=== PATIENT | female | born 1960 | race Caucasian/White ===

== ENCOUNTER 2018-05-21 16:58 | Emergency (ER) | payer MEDICARE, OTHER ==
[2018-05-21 18:08] VITALS: TEMP 96.8
[2018-05-21] MEDS ORDERED: amLODIPine 5 MG TAB PO STA (19:20)
[2018-05-21 19:21] VITALS: PULSE 92
[2018-05-21] MEDS ORDERED: IBUPROFEN 600 MG TAB PO STA (19:22)
--- NOTE | 2018-05-21 19:23 | ED ---
Fall HPI - General Chief Complaint: Fall Stated Complaint: fall/facial abrasions Time Seen by Provider: 05/21/18 18:10 Source: patient Mode of arrival: wheelchair - History of Present Illness Initial Comments: This is a 57-year-old female with past history of hypertension, degenerative disc disease in the lumbar spine, and asthma who presents today for chief complaint of fall. Patient states that at 4:30 PM this afternoon she was walking from one bus to another she states that she was going for a ride down [address]. She states that she usually has a cane for balance with walking however she forgot it at home today, when her flip-flop caught a raised portion of the cement causing her to fall forward and she landed on her knees left greater than right and her nose and chin. Patient states that she merely noticed her nose was bleeding, as well as pain in the nose and the chin. Patient states that she had minimal pain in the knees bilaterally. Patient denies any chest pain, palpitations, shortness of breath, seizure activity, palpitations prior to the fall and states that it was mechanical and due to her for follow-up. Patient denies hitting her forehead or any other part of her head decides her nose and chin , she denies any headache, dizziness, visual changes, ataxia, nausea, vomiting, muscle weakness or loss sensation. Patient does admit to some low back pain, and abrasions to the nose and chin. Patient denies any pain in the teeth, lips, numbness and tingling of the lower extremities, loss sensation lower extremities, loss of of bowel or bladder control. Upon presentation BP elevated at 220/104. - Related Data Allergies Allergy/AdvReac Type Severity Reaction Status Date / Time erythromycin base Allergy Diarrhea Verified 05/21/18 19:40 Review of Systems ROS Statement: Those systems with pertinent positive or pertinent negative responses have been documented in the HPI. ROS Other: All systems not noted in ROS Statement are negative. Past Medical History Past Medical History: Asthma, Hypertension History of Any Multi-Drug Resistant Organisms: None Reported Past Surgical History: No Surgical Hx Reported Past Psychological History: No Psychological Hx Reported Smoking Status: Current every day smoker Past Alcohol Use History: None Reported Past Drug Use History: None Reported General Exam - General Exam Comments Initial Comments: General: The patient is awake and alert, in no distress, and does not appear acutely ill. Eye: Pupils 3mm are equal, round and reactive to light, extra-ocular movements are intact. No APD, or aniscoria. No nystagmus or gaze conjugation. There is normal conjunctiva bilaterally. No signs of icterus. Ears, nose, mouth and throat: There are moist mucous membranes and no oral lesions.Abrasion over the bridge of nose with ecchymosis. No evidence of anterior or posterior epistaxis, no septal hematoma b/l. Neck: The neck is supple, there is no tenderness or JVD. Cardiovascular: There is a regular rate and rhythm. No murmur, rub or gallop is appreciated. Respiratory: Lungs are clear to auscultation, respirations are non-labored, breath sounds are equal. No wheezes, stridor, rales, or rhonchi. Musculoskeletal: Full ROM and strength of UE and LE b/l equally including shoulders, elbow, wrists, hands, hips, knees, ankle, feet, toes. Full sensation of UE/LE equally b/l. Mild tenderness to palpation over the left knee- no obvious deformity with mild soft tissue swelling. Pt able to full WB and ambulate without difficulty. Full ROM and strength of C-spine without tenderness midline or paravertebral. Mild tenderness to palpation over the lumbar spine diffusely, however full ROM and strength. Neurological: A&O x 3. CN II-XII intact, immediate, intermediate and exterminator helper termite memory intact. Speech intact (la, pa, guh), Higher cortical functioning intact including serial calculations, and interpretation of proverb. Graphethesia normal, pt able to identify object with eye closed. 2pt discrimination intact and extinction. No finger agnosia. No hemineglect. No pronator drift. Rapid alternating movements are coordinated. Heel, toe and gait are coordinated and without ataxia. Muscles strength of UE/LE equally b/l. Sensation of the UE/LE equally b/l. (-) Romberg. +2 DTR of radial, patella, achilles equally b/l. (-) Babinski. No saddle parathesias. Skin: Skin is warm and dry and no rashes or lesions are noted. Abrasion to left knee, bridge of nose and chin- very superficial. Psychiatric: Cooperative, appropriate mood & affect, normal judgment Limitations: no limitations Course Vital Signs 0705/21/18 05/21/18 18:05 19:18 20:22 Temperature 96.8 F L Pulse Rate 88 92 92 Respiratory 20 20 18 Rate Blood Pressure 220/104 218/119 192/93 O2 Sat by Pulse 99 99 98 Oximetry 05/21/18 05/21/18 21:38 22:06 Temperature 96.8 F L Pulse Rate 92 Respiratory 20 Rate Blood Pressure 181/90 181/90 O2 Sat by Pulse 99 Oximetry Medical Decision Making - Medical Decision Making 57yo female with PMH of HTN, who had a mechianical fall landing on nose and left knee earlier today. Physical exam of the facial bones, left knee unremarkable aside from small abrasion over the nose, chin and left knee. She denies hitting her head or loss of conciousness. She did have epistaxis earlier but physical examination revealed no septal hematoma. XR of the face, left knee and lumbar spine were obtained due to complaints of pain-returned within normal limited. Pt BP however was significantly elevated upon arrival. Pt denied any headache, weakness, dizziness, confusion, speech changes, visual changes, oliguria, chest pain, shortness of breath, abdominal pain, nausea or vomiting. She stated that her BP has been high in the past and her PCP told her to take another one of her amlodipine 5mg if this occurs. Pt was given 5mg amlodipine PO this dropped BP 192/93. Pt was given o.1 of catapress repeat BP 181/90. Pt continue deny symptoms aside from nose pain, and mild low back pain. Pt was persistent on d/c. An extensive neurological examination was performed which returned unremarkable. Pt did not want any further workup for her hypertension and had no physical symptoms of end organ damage. The case was discussed with Dr. Brizuela at this time we feel the patient is stable for d/c with close PCP f/ u for BP management. Disposition Clinical Impression: Nose pain, Low back pain, Left knee pain, Fall Disposition: HOME SELF-CARE Condition: Good Instructions: Fall Prevention for Older Adults (ED), Hypertension (ED) Additional Instructions: Please follow-up with family doctor tmrw for elevated blood pressure. Please return to emergency room if the symptoms increase or worsen or for any other concerns. Is patient prescribed a controlled substance at d/c from ED?: No Referrals: Rajiv Sexton MD [Primary Care Provider] - 1-2 days Time of Disposition: 21:54
[2018-05-21] MEDS ORDERED: DIPH,PERTUS(ACELL)TETVAC-LF 0.5 ML VIAL IM ONE (19:35)
--- NOTE | 2018-05-21 20:16 | XR ---
EXAMINATION TYPE: XR facial bones complete DATE OF EXAM: 05/21/2018 COMPARISON: NONE HISTORY: Facial abrasions TECHNIQUE: 3 views FINDINGS: Nasal bone is intact. Orbital margins are intact. There is normal aeration of the paranasal sinuses. Maxilla appears intact. Visualized mandible appears intact. IMPRESSION: Normal facial bone exam. No fracture seen.
--- NOTE | 2018-05-21 20:17 | XR ---
EXAMINATION TYPE: XR lumbar spine 2 or 3V DATE OF EXAM: 05/21/2018 COMPARISON: 02/08/2016 HISTORY: Fall. Back pain. TECHNIQUE: 3 views FINDINGS: Lumbar vertebra have normal spacing and alignment. Posterior elements are intact. There is mild spurring of the endplates at L5-S1. Sacroiliac joints appear intact. IMPRESSION: Mild spondylosis at L5-S1. No fracture.
--- NOTE | 2018-05-21 20:18 | XR ---
EXAMINATION TYPE: XR knee complete LT DATE OF EXAM: 05/21/2018 COMPARISON: NONE HISTORY: Fell on the sidewalk. Pain. TECHNIQUE: 3 views FINDINGS: There is spurring on the patella. I see no fracture nor dislocation. There is no sign of roseline int effusion. IMPRESSION: Mild spurring. No fracture seen.
[2018-05-21] MEDS ORDERED: cloNIDine HCL 0.1 MG TAB PO STA (20:42)
[2018-05-21 21:39] VITALS: BP 181/90
[2018-05-21 22:06] VITALS: RESP 20
== END 2018-05-21 22:06 | disposition home or self-care (01) ==
LOC: EC 16:58
DX: S00.33XA Contusion of nose, initial encounter (principal); S00.81XA Abrasion of other part of head, initial encounter; M54.5 Low back pain; M25.562 Pain in left knee; F17.200 Nicotine dependence, unspecified, uncomplicated; Z23 Encounter for immunization; Z88.1 Allergy status to other antibiotic agents; V78.4XXA Person boarding or alighting from bus injured in noncollision transport accident, initial encounter; Y93.01 Activity, walking, marching and hiking; Y92.89 Other specified places as the place of occurrence of the external cause
CPT/HCPCS: 70150; 72100; 90471; 90715; 99283

== ENCOUNTER → 2019-07-09 | Outpatient (CLI) | payer MEDICARE, OTHER ==
--- NOTE | 2019-07-09 11:29 | XR ---
EXAMINATION TYPE: XR foot complete RT DATE OF EXAM: 07/09/2019 COMPARISON: NONE HISTORY: Pain TECHNIQUE: Three views are submitted. FINDINGS: The osseous structures are intact. There is slight deformity of the base of the first metatarsal.. Arthropathy first MTP. There is arthropathy of the calcaneal navicular joint. Cystic changes are not ed. Calcaneal spur noted.. IMPRESSION: 1. Severe arthropathy involving the calcaneonavicular joint. 2. Deformity at the base of the first metatarsal could be chronic. If there is point tenderness consi janina follow-up CT scan to exclude fracture. 3. First MTP joint arthropathy.. 4. Calcaneal spur
== END | disposition home or self-care (01) ==
LOC: RADXRMAIN 10:56
PROVIDERS: ATTEND Podiatrist Foot Surgery
DX: M12.811 Other specific arthropathies, not elsewhere classified, right shoulder (principal)

== ENCOUNTER 2024-05-27 07:58 | Day surgery (SDC) | payer MEDICARE, OTHER ==
[2024-05-26 12:11] VITALS: BMI 40.6
[2024-05-27] MEDS: IV FLUID CONTINUATION 1,000 ML IV ONE (08:19)
[2024-05-27 08:24] VITALS: TEMP 98.3
[2024-05-27] MEDS: LACTATED RINGERS 1,000 ML IV SCH (08:27)
[2024-05-27 08:29] LABS: Glucose,Whole Blood 103 mg/dL (70-110)
[2024-05-27] MEDS ORDERED: LIDOCAINE 1% INJ 10MG/ML (20 ML MDV) ONE (08:41)
[2024-05-27] MEDS ORDERED: PROPOFOL 10 MG/ML 20 ML VIAL IV ONE (08:41)
--- NOTE | 2024-05-27 08:43 | P.GSHP ---
History of Present Illness H&P Date: 05/27/24 Chief Complaint: Screening colonoscopy Is a 63-year-old female presents today for screening colonoscopy. Patient denies any significant GI complaints. Past Medical History Past Medical History: Asthma, Hypertension, Osteoarthritis (OA) History of Any Multi-Drug Resistant Organisms: None Reported Past Surgical History: Cholecystectomy, Orthopedic Surgery Additional Past Surgical History / Comment(s): Lt hip replacement. Past Anesthesia/Blood Transfusion Reactions: No Reported Reaction Smoking Status: Current every day smoker - Past Family History Father Family Medical History: No Reported History Medications and Allergies Allergies Allergy/AdvReac Type Severity Reaction Status Date / Time erythromycin base Allergy Diarrhea Verified 05/27/24 08:12 Surgical - Exam Vital Signs Temp Pulse Resp BP Pulse Ox 98.3 F 90 15 195/88 97 05/27/24 08:20 05/27/24 08:20 05/27/24 08:20 05/27/24 08:20 05/27/24 08:20 - General well developed, well nourished, no distress - Eyes PERRL - ENT normal pinna - Neck no masses - Respiratory normal expansion - Cardiovascular Rhythm: regular - Abdomen Abdomen: soft, non tender Assessment and Plan Plan: Will perform screening colonoscopy
--- NOTE | 2024-05-27 09:00 | P.OP ---
Date of Procedure: 05/27/24 Preoperative Diagnosis: Screening colonoscopy Postoperative Diagnosis: Diverticulosis Procedure(s) Performed: Colonoscopy Anesthesia: MAC Surgeon: Navdeep Perales Pathology: none sent Condition: stable Disposition: PACU Description of Procedure: Col the patient is placed on the endoscopy table in the lateral position. She received IV sedation. Digital rectal exam was performed. This revealed no abnormalities. The flexible colonoscope was then placed patient anus and passed throughout the entire colon. The ileocecal valve was visualized. The cecum, ascending and transverse colon appeared normal. The descending and sigmoid colon had moderate diverticular changes. The scope was then brought back to the rectum and this appeared normal. The scope was withdrawn from the patient.
[2024-05-27 09:22] VITALS: BP 150/78; PULSE 78; RESP 18
== END 2024-05-27 09:32 | disposition home or self-care (01) ==
LOC: ORWHC2ENDO 07:58
PROVIDERS: ATTEND Surgery
DX: Z12.11 Encounter for screening for malignant neoplasm of colon (principal); I10 Essential (primary) hypertension; F17.200 Nicotine dependence, unspecified, uncomplicated; M19.90 Unspecified osteoarthritis, unspecified site; J45.909 Unspecified asthma, uncomplicated; Z90.49 Acquired absence of other specified parts of digestive tract; Z88.1 Allergy status to other antibiotic agents
CPT/HCPCS: J2001; J2704; G0121

== ENCOUNTER → 2025-01-12 | Outpatient (CLI) | payer MEDICARE, OTHER ==
[2025-01-12 14:05] VITALS: BP 170/80; PULSE 75; RESP 16; TEMP 97.8
--- NOTE | 2025-01-12 14:36 | P.SLEEP ---
History of Present Illness DATE: 01/12/2025 CONSULTATION/NEW PATIENT EVALUATION HISTORY OF PRESENT ILLNESS/SLEEP-WAKE EVALUATION: 64-year-old lady had been e valuated in the sleep center for possible obstructive sleep apnea hypopnea syndrome. SLEEP SCHEDULE: Usually sleep schedule from 8- 9 PM to 8:30 AM. FALLING ASLEEP: Sometimes patient has difficulties with falling asleep. DURING SLEEP: Patient snores and wakes up from sleep 3 times with nocturia, dry mouth, sweating. Positive history of sleep talking. No history of hypnogogical hallucinations, sleep paralysis, or cataplexy. DURING THE DAY/WAKE STATE: In the morning patient wake up tired, falling asleep during the day, positive history of claustrophobia. [place] sleepiness scale is in extremely high range of 19. Patient may take 2 naps during the day. PAST MEDICAL HISTORY: Hypertension. PAST SURGICAL HISTORY: Cholecystectomy, bilateral knee surgery. MEDICATIONS: Amlodipine, lisinopril, Detrol, aspirin, melatonin, hydralazine. SOCIAL HISTORY: Please see below. FAMILY HISTORY: Please see below. REVIEW OF SYSTEMS: Snoring, multiple awakenings from sleep, sleepiness during the day. No fevers. No double vision. No recent chest pain. No shortness of breath. No abdominal pain. No bleeding episodes. No blood in urine. No seizure episodes. PHYSICAL EXAMINATION: GENERAL: A pleasant patient without any distress. VITAL SIGNS: Please see below, weight 239.4 pounds, BMI 46.3. HEENT: PERRLA, EOMI. Evaluation of oropharynx showed tongue protrudes midline, low position of soft palate Mallampati 4. NECK: Supple. No JVD. Thyroid is not palpable. 16 inches in circumference. LUNGS: Clear to percussion and to auscultation. Good air exchange. No wheezing or rhonchi. HEART: S1, S2 regular. No murmurs, gallops or rubs. ABDOMEN: Soft and nontender. Bowel sounds are present. No organomegaly appreciated. EXTREMITIES: No clubbing or cyanosis. STATION SUPERVISOR: Awake, alert, and oriented x3. Cranial nerves 2 to 7 intact. There is no fasciculation or atrophy noted. No focal deficits observed. ASSESSMENT: 1. Snoring, multiple awakenings from sleep, extremely low position of soft palate Mallampati 4, wide neck 16 inches in circumference, sleepiness with very high [place] Sleepiness Scale. Obstructive sleep apnea hypopnea syndrome. 2. Obesity, BMI 46.3. 3. Hypertension not on full control with 3 medications. 4. Status post cholecystectomy. 5 status post bilateral knee arthroscopic surgery. PLAN: 1. Polysomnography for evaluation of patient's breathing during sleep. 2. Following plan after reading sleep study. 3. Preferable position during sleep on the side. 4. No driving if patient feels any sleepiness. Patient is aware of civil and criminal liability for unsafe driving. 5. Sleep hygiene with regular sleep time for at least 7.5-8 hours. 6. Watching and losing weight. Thank you very much for referring this patient for consultation. Sincerely, Andres Thakkar MD, PhD, FAASM. Diplomat of [place] [employer], Sleep Medicine Board by [place] [employer] [place] [employer] Screw Machine Operator of [facility] [place] cc: Lauren Swartz MD Past Medical History Past Medical History: Asthma, Hyperlipidemia, Hypertension, Osteoarthritis (OA) Additional Past Medical History / Comment(s): Snoring, prediabetic History of Any Multi-Drug Resistant Organisms: None Reported Past Surgical History: Cholecystectomy, Orthopedic Surgery Additional Past Surgical History / Comment(s): Lt hip replacement, bilateral knee arthroscopy, bilaterl heal spurs, tubal ligation. Past Anesthesia/Blood Transfusion Reactions: No Reported Reaction Past Psychological History: No Psychological Hx Reported Smoking Status: Current every day smoker Past Alcohol Use History: None Reported Additional Past Alcohol Use History / Comment(s): Can't remember when she started smoking, 1ppd. Past Drug Use History: None Reported - Past Family History Father Family Medical History: Cancer, Hyperlipidemia Additional Family Medical History / Comment(s): Esophageal cancer, Mother Family Medical History: Diabetes Mellitus, Hypertension Medications and Allergies Allergies Allergy/AdvReac Type Severity Reaction Status Date / Time erythromycin base Allergy Diarrhea Verified 05/27/24 08:12 Physical Exam Vitals: Vital Signs Temp Pulse Resp BP Pulse Ox 01/12/25 14:01 97.8 F 75 16 170/80 95 Intake and Output 01/11/25 01/12/25 01/12/25 22:59 06:59 14:59 Other: Weight 108.522 kg Sleep Note - Sleep Data ESS Total: 19 - Sleep Note Sleep Note: Temperature: 97.8 F Pulse Rate: 75 Respiratory Rate: 16 Blood Pressure: 170/80 SpO2: 95 Height: 5 ft 2 in Weight: 108.522 kg BMI: Neck Circumference: 16
== END ==
LOC: 3 N SLEEP 13:09
PROVIDERS: ATTEND Internal Medicine
DX: G47.33 Obstructive sleep apnea (adult) (pediatric) (principal); E66.9 Obesity, unspecified; I10 Essential (primary) hypertension; F17.210 Nicotine dependence, cigarettes, uncomplicated; Z68.42 Body mass index [BMI] 45.0-49.9, adult; Z90.49 Acquired absence of other specified parts of digestive tract; Z96.653 Presence of artificial knee joint, bilateral; Z88.1 Allergy status to other antibiotic agents
CPT/HCPCS: 99211

== ENCOUNTER 2025-02-15 19:15 | Outpatient (CLI) | payer MEDICARE, OTHER ==
--- NOTE | 2025-02-23 13:57 | P.PCN ---
Description of Procedure: POLYSOMNOGRAPHY REPORT PROCEDURE(S)/DATE(S): Polysomnography 02/15/2025 CLINICAL: Patient has been seen in the sleep center for evaluation of obstructive sleep apnea-hypopnea syndrome. Please see my consultation. Sleep study has been done for evaluation of patient breathing during the sleep. PROCEDURE: The standard montage for clinical polysomnography included the electroencephalogram, the electrooculogram, the mentalis surface electromyography and Lead II cardiography. The respiratory battery consisted of measurements of nasal/buccal air flow, pressure transducer measurements from nose, thoracic and/or abdominal effort and intercostal surface electromyography. Video monitoring has been done to check for any parasomnia events. Nocturnal oxyhemoglobin saturations were obtained by finger oximetry. Step-gracia titration with positive airway pressure was utilized to control the respiratory events, if necessary. RESULTS: During the diagnostic sleep study sleep efficiency was extremely short 34.8%. Latency to sleep onset was significantly prolonged to 58.5 min. Sleep architecture showed stage NI was extremely high 89.3%, Delta sleep was absent 0%, REM sleep was absent 0%. Respiratory channel showed 8 obstructive apneas, 0 mixed apneas, 0 central apneas, 90 hypopneas with lowest oxygen level 89%. Total apnea hypopnea index was 43.4. Heart rate was in the range between 75 and 89, average 84. EMG showed 0 periodic limb movements per hour with 0 micro-arousals per hour. IMPRESSIONS: 1. Severe obstructive sleep apnea hypopnea syndrome. 2. No significant periodic limb movements have been documented. Please see other impressions from consultation PLAN: 1. The patient will have PAP titration for correction of respiratory abnormalities during the sleep. 2. Losing weight program. 3. Sleep hygiene with regular time in bed for at least 7-1/2 hours. 4. No driving if feeling sleepiness. Thank you very much for allowing me to participate in the management of your patient. Sincerely, Andres Thakkar MD, PhD, FAASM. Diplomat of [place] [employer], Sleep Medicine Board by [place] [employer] Transplant Registered Nurse of [facility] [place] cc: Lauren Swartz MD
== END 2025-02-16 05:00 | disposition home or self-care (01) ==
LOC: 3 N SLEEP 19:15
PROVIDERS: ATTEND Internal Medicine
DX: G47.33 Obstructive sleep apnea (adult) (pediatric) (principal); F17.200 Nicotine dependence, unspecified, uncomplicated; Z88.1 Allergy status to other antibiotic agents
CPT/HCPCS: 95810

== ENCOUNTER 2025-05-29 14:48 | Observation (INO) | payer MEDICARE, OTHER ==
--- NOTE | 2025-05-29 15:09 | ED ---
General Adult HPI - General Chief complaint: Syncope Stated complaint: Fall Time Seen by Provider: 05/29/25 14:59 Source: patient, family, RN notes reviewed Mode of arrival: EMS Limitations: no limitations - History of Present Illness Initial comments: Patient is a 64-year-old female present to the emergency department with concern with syncopal episode. Episode occurred just prior to arrival. Patient was doing some yard work prior to this and it was hot outside. Patient then became unresponsive for around 15 to 20 minutes. Patient feels fine at this time and has no complaints. No chest pain or dyspnea. No back or abdominal pain. No headache or confusion. No history of similar symptoms previously. Patient denies any hip pain. - Related Data Allergies Allergy/AdvReac Type Severity Reaction Status Date / Time erythromycin base Allergy Diarrhea Verified 05/27/24 08:12 Review of Systems ROS Statement: Those systems with pertinent positive or pertinent negative responses have been documented in the HPI. ROS Other: All systems not noted in ROS Statement are negative. Constitutional: Denies: fever Eyes: Denies: eye pain ENT: Denies: ear pain Respiratory: Denies: cough, dyspnea Cardiovascular: Denies: chest pain Neurological: Denies: headache, weakness, confusion Past Medical History Past Medical History: Asthma, Hyperlipidemia, Hypertension, Osteoarthritis (OA) Additional Past Medical History / Comment(s): Snoring, prediabetic History of Any Multi-Drug Resistant Organisms: None Reported Past Surgical History: Cholecystectomy, Orthopedic Surgery Additional Past Surgical History / Comment(s): Lt hip replacement, bilateral knee arthroscopy, bilaterl heal spurs, tubal ligation. Past Anesthesia/Blood Transfusion Reactions: No Reported Reaction Past Psychological History: No Psychological Hx Reported Smoking Status: Current every day smoker Past Alcohol Use History: None Reported Past Drug Use History: None Reported - Past Family History Father Family Medical History: Cancer, Hyperlipidemia Additional Family Medical History / Comment(s): Esophageal cancer, Mother Family Medical History: Diabetes Mellitus, Hypertension General Exam Limitations: no limitations General appearance: alert, in no apparent distress Head exam: Present: atraumatic, normocephalic Eye exam: Present: normal appearance, PERRL, EOMI ENT exam: Present: normal oropharynx Neck exam: Present: normal inspection, full ROM. Absent: tenderness, meningismus Respiratory exam: Present: normal lung sounds bilaterally Cardiovascular Exam: Present: regular rate, normal rhythm GI/Abdominal exam: Present: soft. Absent: tenderness, pulsatile mass Extremities exam: Present: normal inspection, full ROM. Absent: tenderness Neurological exam: Present: alert, oriented X3, CN II-XII intact. Absent: motor sensory deficit Expanded Neurological exam: Present: protecting the airway Speech: Present: fluid speech Cranial nerves: EOM's Intact: Normal Motor strength exam: RUE: 5, LUE: 5, RLE: 5, LLE: 5 Eye Response: (4) open spontaneously Motor Response: (6) obeys commands Verbal Response: (5) oriented Psychiatric exam: Present: normal affect, normal mood Skin exam: Present: normal color Course Vital Signs 05/29/25 14:50 Temperature 98.9 F Pulse Rate 107 H Respiratory 18 Rate Blood Pressure 92/63 O2 Sat by Pulse 97 Oximetry EKG Findings - EKG Results: EKG: interpreted by NERI (Left axis. Left bundle branch block. Nonspecific ST- T.), sinus rhythm Medical Decision Making - Medical Decision Making Was pt. sent in by a medical professional or institution (Dr. PA, REGISTERED NURSE CARDIAC TELEMETRY, urgent care, hospital, or long term...) When possible be specific @ -No Did you speak to anyone other than the patient for history (EMS, parent, family, police, friend...)? What history was obtained from this source @ -Family is present and provides additional history of duration of syncopal episode Did you review nursing and triage notes (agree or disagree)? Why? @ -I reviewed and agree with nursing and triage notes Were old charts reviewed (outside hosp., previous admission, EMS record, old EKG, old radiological studies, urgent care reports/EKG's, long term records)? Report findings @ -No old charts were reviewed Differential Diagnosis (chest pain, altered mental status, abdominal pain women, abdominal pain men, vaginal bleeding, weakness, fever, dyspnea, syncope, headache, dizziness, GI bleed, back pain, seizure, CVA, palpatations, mental health, musculoskeletal)? @ -Differential Syncope: Valvular disease, hypertrophic cardiomyopathy, pulmonary embolism, tamponade, tachycardia, bradycardia, [place], hypovolemia, hemorrhage, dissection, anemia, intracranial hemorrhage, seizure, hypoglycemia, carbon monoxide poisoning, this is not meant to be an all-inclusive list. EKG interpreted by me (3pts min.). @ -As above X-rays interpreted by me (1pt min.). @ -None done CT interpreted by me (1pt min.). @ -None done U/S interpreted by me (1pt. min.). @ -None done What testing was considered but not performed or refused? (CT, X-rays, U/S, labs)? Why? @ -CT and x-ray ordered but pending What meds were considered but not given or refused? Why? @ -None Did you discuss the management of the patient with other professionals (professionals i.e. DrMarilyn, PA, REGISTERED NURSE CARDIAC TELEMETRY, lab, RT, psych nurse, social media director, personal financial advisor, teacher, safety patrol officer, director case management)? Give summary @ -Case discussed with [facility] will admit covering for Dr. Stone Was smoking cessation discussed for >3mins.? @ -No Was critical care preformed (if so, how long)? @ -No Were there social determinants of health that impacted care today? How? ( Homelessness, low income, unemployed, alcoholism, drug addiction, transportation, low edu. Level, literacy, decrease access to med. care, halfway, rehab)? @ -No Was there de-escalation of care discussed even if they declined (Discuss DNR or withdrawal of care, Hospice)? DNR status @ -No What co-morbidities impacted this encounter? (DM, HTN, Smoking, COPD, CAD, Cancer, CVA, ARF, Chemo, Hep., AIDS, mental health diagnosis, sleep apnea, morbid obesity)? @ -None Was patient admitted / discharged? Hospital course, mention meds given and route, prescriptions, significant lab abnormalities, going to OR and other pertinent info. @ -Patient presents with syncopal episode. There is minimal ANNAMARIE. Patient will be admitted, admission orders written. Patient reevaluated and updated. Evaluation and still in progress and will be monitored by afternoon physician and admitting team. Undiagnosed new problem with uncertain prognosis? @ -No Drug Therapy requiring intensive monitoring for toxicity (Heparin, Nitro, Insulin, Cardizem)? @ -No Were any procedures done? @ -No Diagnosis/symptom? @ -Syncope Acute, or Chronic, or Acute on Chronic? @ -Acute Uncomplicated (without systemic symptoms) or Complicated (systemic symptoms)? @ -Complicated with mild ANNAMARIE Side effects of treatment? @ -No Exacerbation, Progression, or Severe Exacerbation? @ -No Poses a threat to life or bodily function? How? (Chest pain, [place], [place], pneumonia, PE, COPD, DKA, ARF, appy, cholecystitis, CVA, Diverticulitis, Homicidal, Suicidal, threat to staff... and all critical care pts) @ -No - Lab Data Result diagrams: 05/29/25 15:25 05/29/25 15: Lab Results 05/29/25 05/29/25 05/29/25 Range/Units 15:23 15: 15: WBC 10.49 H (4.50-10.00) 10*3/uL RBC 4.17 (4.10-5.20) 10*6/uL Hgb 13.5 (12.0-15.0) g/dL Hct 40.1 (37.2-46.3) % MCV 96.2 (80.0-97.0) fL MCH 32.4 H (27.0-32.0) pg MCHC 33.7 (32.0-37.0) g/dL MPV 9.8 (9.5-12.2) fL Immature Gran % (Auto) 0.4 % Immature Gran # 0.04 (0.00-0.04) 10*3/uL Immature Plt Fraction 1.0 L (1.1-6.1) % Sodium 144 (137-145) mmol/L Potassium 3.6 (3.5-5.1) mmol/L Chloride 113 H (98-107) mmol/L Carbon Dioxide 18 L (22-30) mmol/L Anion Gap 13 mmol/L BUN 19 H (7-17) mg/dL Creatinine 1.53 H (0.52-1.04) mg/dL Est GFR (CKD-EPI)AfAm 42 (>60 ml/min/1.73 sqM) Est GFR (CKD-EPI)NonAf 36 (>60 ml/min/1.73 sqM) Glucose 110 H (74-99) mg/dL POC Glucose (mg/dL) 115 H (70-110) mg/dL POC Glu Safety Patrol Officer ID February Calcium 10.0 (8.4-10.2) mg/dL Magnesium 1.8 (1.6-2.3) mg/dL Total Bilirubin 1.2 (0.2-1.3) mg/dL AST 30 (14-36) U/L ALT 21 (4-34) U/L Alkaline Phosphatase 90 (38-126) U/L Total Protein 7.0 (6.3-8.2) g/dL Albumin 4.2 (3.5-5.0) g/dL Disposition Clinical Impression: Syncope Disposition: ADMITTED IP TO THIS HOSP Is patient prescribed a controlled substance at d/c from ED?: No Referrals: Lauren Swartz MD [Primary Care Provider] - 1-2 days Time of Disposition: 16:27
[2025-05-29 15:25] LABS: Glucose,Whole Blood 115 mg/dL (70-110)
[2025-05-29] MEDS: SODIUM CHLORIDE 0.9% 1,000 ML IV STA (15:35)
[2025-05-29 15:39] LABS: Basophils # (A) 0.03 10*3/uL (0.00-0.10); Basophils % (A) 0.3 %; Eosinophils # (A) 0.01 10*3/uL (0.04-0.35); Eosinophils % (A) 0.1 %; HCT 40.1 % (37.2-46.3); HGB 13.5 g/dL (12.0-15.0); Immature Platelet Fraction 1.0 % (1.1-6.1); Lymphocytes # (A) 0.54 10*3/uL (0.90-5.00); Lymphocytes % (A) 5.1 %; MCH 32.4 pg (27.0-32.0); MCHC 33.7 g/dL (32.0-37.0); MCV 96.2 fL (80.0-97.0); Monocytes # (A) 0.49 10*3/uL (0.20-1.00); Monocytes % (A) 4.7 %; Neutrophils # (A) 9.38 10*3/uL (1.80-7.70); Neutrophils % (A) 89.4 %; RBC 4.17 10*6/uL (4.10-5.20); RDW 13.5 % (11.5-14.5); WBC 10.49 10*3/uL (4.50-10.00)
[2025-05-29 15:52] LABS: ALT 21 U/L (4-34); AST 30 U/L (14-36); African American GFR (CKD) 42 (>60 ml/min/1.73 sqM); Albumin 4.2 g/dL (3.5-5.0); Alkaline Phosphatase 90 U/L (38-126); Anion Gap 13 mmol/L; Blood Urea Nitrogen 19 mg/dL (7-17); Calcium 10.0 mg/dL (8.4-10.2); Carbon Dioxide 18 mmol/L (22-30); Chloride 113 mmol/L (98-107); Glucose 110 mg/dL (74-99); Magnesium 1.8 mg/dL (1.6-2.3); Non-African American GFR(CKD) 36 (>60 ml/min/1.73 sqM); Potassium 3.6 mmol/L (3.5-5.1); Sodium 144 mmol/L (137-145); Total Protein 7.0 g/dL (6.3-8.2)
[2025-05-29] MEDS ORDERED: NALOXONE 0.4 MG/ML 1 ML VIAL IV PRN (16:29)
[2025-05-29 16:43] LABS: Platelet Count 244 10*3/uL (140-440)
[2025-05-29 17:07] LABS: INR 1.0 (<1.2); Partial Thromboplastin Time 21.2 sec (22.0-30.0); Prothrombin Time 11.0 sec (10.0-12.5)
--- NOTE | 2025-05-29 17:12 | CT ---
EXAMINATION TYPE: CT brain wo con DATE OF EXAM: 05/29/2025 5:07 PM COMPARISON: None. CLINICAL INDICATION: Female, 64 years old with history of syncope, FALL, SYNCOPE TECHNIQUE: Brain: Axial CT images of the brain were obtained with coronal and sagittal reformats created and rev iewed. Contrast used: None. Oral contrast used: None. CT DLP: 1111.9 mGycm, Automated exposure control for dose reduction was used. FINDINGS: Brain: Extra-axial spaces: No abnormal extra-axial fluid collections. Ventricular system: Within normal limits Cerebral parenchyma: No acute intraparenchymal hemorrhage or mass effect. The montemayor-white junction is well differentiated. Scattered hypoattenuating areas are seen within the white matter. Cerebellum: Unremarkable. Mass effect: No evidence of midline shift. Intracranial vasculature: unremarkable Soft tissues: Normal. Calvarium/osseous structures: No depressed skull fracture. Paranasal sinuses and mastoid air cells: Mild scattered paranasal sinus disease. Visualized orbits: Orbital contents are intact. IMPRESSION: No acute intracranial process. [facility], , 05/29/2025 5:10 PM
[2025-05-29] MEDS: SODIUM CHLORIDE 0.9% 1,000 ML IV SCH (17:36)
--- NOTE | 2025-05-29 17:43 | XR ---
EXAMINATION TYPE: XR chest 2V DATE OF EXAM: 05/29/2025 5:35 PM COMPARISON: Chest CT study 05/29/2025. CLINICAL INDICATION: Female, 64 years old with history of syncope; [facility] TECHNIQUE: XR chest 2V Frontal and lateral views of the chest. FINDINGS: Lungs/Pleura: There is no evidence of pleural effusion, focal consolidation, or pneumothorax. Pulmonary vascularity: Unremarkable. Heart/mediastinum: Cardiomegaly. Musculoskeletal: No acute osseous pathology. Other findings: None IMPRESSION: No acute cardiopulmonary disease/process. [facility], , 05/29/2025 5:41 PM
--- NOTE | 2025-05-29 18:08 | CT ---
EXAMINATION TYPE: CT angio chest DATE OF EXAM: 05/29/2025 6:02 PM COMPARISON: CT study 07/25/2023. CLINICAL INDICATION: Female, 64 years old with history of elevated d-dimer; ELEVATED D-DIMER TECHNIQUE/CONTRAST: CTA scan of the thorax is performed with IV Contrast, patient injected with 80ML mL of Isovue 370, FL P images are created and reviewed these are created on a separate workstation.. CT DLP: 383.8 mGycm, Automated exposure control for dose reduction was used. FINDINGS: Pulmonary Artery: There is no evidence for a filling defect within the pulmonary vasculature to sugge st acute pulmonary embolism. The pulmonary artery is of normal size. Lungs/Pleura: No evidence of focal consolidation, pleural effusion or pneumothorax. Airway: Large airways are patent. Heart: Cardiomegaly without significant pericardial effusion. Coronary artery calcifications. Vasculature: No evidence of aortic aneurysm. Mediastinum: No gross evidence of adenopathy. Musculoskeletal: No acute osseous abnormalities Soft Tissues/lymph nodes: Unremarkable. Lower neck: No significant findings. Upper Abdomen: No significant acute findings. Decreased hepatic parenchymal attenuation suggesting st eatosis. Small hiatal hernia. IMPRESSION: No evidence of acute pulmonary embolism or acute pulmonary pathology. [facility], , 05/29/2025 6:06 PM
[2025-05-29 19:02] LABS: RSV Not Detected (Not Detectd)
--- NOTE | 2025-05-29 21:04 | HP ---
HISTORY AND PHYSICAL CHIEF COMPLAINT: Syncope. HISTORY OF PRESENT ILLNESS: 64-year-old woman with a past medical history of multiple asthma, hypertension and hyperlipidemia, has had a syncope in the patient after working some yard work and being hot outside. The patient came to [facility]. D-dimer is elevated. Troponin is also elevated. There is no history of chest pain or palpitation. The patient is being closely monitored. PAST MEDICAL HISTORY: History of asthma, hypertension, and hyperlipidemia. Rest of the chart is also reviewed. HOME MEDICATIONS: None. ALLERGIES: Erythromycin base. FAMILY HISTORY: History of cancer, hyperlipidemia, cancer. SOCIAL HISTORY: History of smoking. REVIEW OF SYSTEMS: Fourteen-point review of systems negative except as mentioned earlier. PHYSICAL EXAMINATION: VITAL SIGNS: Pulse is 107, blood pressure 92/60, and respirations 18. HEENT: Conjunctivae normal. NECK: No jugular venous distention. No carotid bruit. CARDIOVASCULAR: S1, S2. RESPIRATORY: Breath sounds diminished in the bases. No rhonchi, no crackles. ABDOMEN: Soft, nontender. EXTREMITIES: Legs, no edema. NERVOUS SYSTEM: Nonfocal. LABORATORY DATA: Reviewed. ASSESSMENT: 1. Syncope, possibly from hypovolemia and dehydration. 2. Acute renal failure. 3. Elevated D-dimer. Rule out acute pulmonary embolism. 4. Troponin 0.046. Rule out acute myocardial infarction. 5. Asthma. 6. Hypertension. 7. Hyperlipidemia. 8. Multiple complex medical issues. RECOMMENDATIONS AND DISCUSSION: This 64-year-old woman presented with multiple complex medical issues. We will monitor the patient closely. Continue current management and symptomatic treatment. Recommend cardiology consultation. 2D echo with the Doppler. CT angio of the chest. Resume the home medications. Continue the IV fluids. Orthostatic vitals. Guarded prognosis because of multiple complex medical conditions. Further recommendations to follow. See orders for the details. MMODL / IJN: [id number] / MTDD
[2025-05-29] MEDS: HEPARIN SODIUM,PORCINE 5,000 UNIT/ML 1 ML VIAL SQ SCH (22:51)
[2025-05-30 02:31] LABS: Basophils # (A) 0.03 10*3/uL (0.00-0.10); Basophils % (A) 0.3 %; Eosinophils # (A) 0.06 10*3/uL (0.04-0.35); Eosinophils % (A) 0.6 %; HCT 38.7 % (37.2-46.3); HGB 12.7 g/dL (12.0-15.0); Lymphocytes # (A) 2.79 10*3/uL (0.90-5.00); Lymphocytes % (A) 27.2 %; MCH 32.2 pg (27.0-32.0); MCHC 32.8 g/dL (32.0-37.0); MCV 98.2 fL (80.0-97.0); Monocytes # (A) 1.01 10*3/uL (0.20-1.00); Monocytes % (A) 9.8 %; Neutrophils # (A) 6.34 10*3/uL (1.80-7.70); Neutrophils % (A) 61.7 %; Platelet Count 243 10*3/uL (140-440); RBC 3.94 10*6/uL (4.10-5.20); RDW 13.9 % (11.5-14.5); WBC 10.27 10*3/uL (4.50-10.00)
[2025-05-30 02:43] LABS: ALT 21 U/L (4-34); AST 29 U/L (14-36); African American GFR (CKD) 75 (>60 ml/min/1.73 sqM); Albumin 3.7 g/dL (3.5-5.0); Alkaline Phosphatase 75 U/L (38-126); Anion Gap 9 mmol/L; Blood Urea Nitrogen 18 mg/dL (7-17); Calcium 9.2 mg/dL (8.4-10.2); Carbon Dioxide 24 mmol/L (22-30); Chloride 109 mmol/L (98-107); Glucose 82 mg/dL (74-99); Non-African American GFR(CKD) 65 (>60 ml/min/1.73 sqM); Potassium 3.5 mmol/L (3.5-5.1); Sodium 142 mmol/L (137-145); Total Protein 6.4 g/dL (6.3-8.2)
[2025-05-30] MEDS: amLODIPine 10 MG TAB PO SCH (09:38)
--- NOTE | 2025-05-30 10:56 | P.CRDCN ---
History of Present Illness History of present illness: HISTORY OF PRESENT ILLNESS: This is a 64-year-old female with a past medical history significant for hypertension, hyperlipidemia, and obesity. Patient follows in the office with Dr. Saha. We have been asked to see the patient in consultation for syncope. Patient examined at the bedside. Patient states that she was sitting outside watching her brother mow the lawn. She thought that she was initiated part of the yard due to the heat. She states she was feeling fine at that time however when she went to go back into the house she passed out. She states that she was out for a couple minutes. She denied having any chest pain or pressure. She denied having any shortness of breath. She denied have any dizziness or lightheadedness. She states that her family was around when this happened. She believes that she was out for couple minutes. She denies any jerking movements of her extremities or losing control of her bowel or bladder. She denies any previous episodes of syncope. She is a current cigarette smoker but states she is trying to stop. DIAGNOSTICS: - EKG reveals sinus mechanism with left bundle branch block. - Chest xray negative for acute findings - Laboratory data: Troponin 0.049. 0.062. 0.055. - Current home cardiac medications include lisinopril 20 mg twice a day, hydrochlorothiazide 25 mg daily, hydralazine 10 mg twice a day, amlodipine 10 mg daily, Lipitor 20 mg at night. - Most recent echocardiogram obtained in December 2024 reveals ejection fraction 40 to 45%, moderate concentric LVH, moderate MR, trace TR. - Patient underwent Lexiscan stress test in April 2023 which was negative for ischemia REVIEW OF SYSTEMS: At the time of my exam: CONSTITUTIONAL: Denies fever or chills. HEENT: Denies blurred vision, vision changes, or eye pain. Denies hemoptysis CARDIOVASCULAR: Denies chest pain. Denies orthopnea. Denies PND. Denies palpitat ions RESPIRATORY: Denies shortness of breath. GASTROINTESTINAL: Denies abdominal pain. Denies nausea or vomiting. HEMATOLOGIC: Denies bleeding disorders. GENITOURINARY: Denies any blood in urine. SKIN: Denies pruitis. Denies rash. PHYSICAL EXAM: VITAL SIGNS: Reviewed. GENERAL: Well-developed in no acute distress. HEENT: Head is normocephalic. Pupils are equal, round. Sclerae anicteric. Mucous membranes of the mouth are moist. Neck supple. No JVD or thyromegaly LUNGS: Respirations even and unlabored. Lungs essentially clear to auscultation bilaterally. HEART: Regular rate and rhythm. S1 and S2 heard. ABDOMEN: Soft. Nondistended. Nontender. EXTREMITIES: Normal range of motion. No clubbing or cyanosis. Peripheral pulses intact. No lower extremity edema NEUROLOGIC: Awake and alert. Oriented x 3. ASSESSMENT: Syncope, likely orthostatic hypotension Acute kidney injury, resolved with IV fluid hydration Elevated troponins, flat, likely secondary to acute kidney injury, no evidence of myocardial injury or ischemia History of hypertension History of hyperlipidemia Obesity: BMI 37.8 Nicotine dependence PLAN: Obtain 2D echo to assess cardiac structure and function Resume home cardiac medications Obtain orthostatic blood pressures Patient may be discharged home this afternoon pending echo results Further recommendations pending patient course Nurse practitioner note has been reviewed by physician. Signing provider agrees with the documented findings, assessment, and plan of care documented by DENTAL EQUIPMENT REPAIRER as a scribe. Past Medical History Past Medical History: Asthma, Hyperlipidemia, Hypertension, Osteoarthritis (OA) Additional Past Medical History / Comment(s): Snoring, prediabetic History of Any Multi-Drug Resistant Organisms: None Reported Past Surgical History: Cholecystectomy, Orthopedic Surgery Additional Past Surgical History / Comment(s): Lt hip replacement, bilateral knee arthroscopy, bilaterl heal spurs, tubal ligation. Past Anesthesia/Blood Transfusion Reactions: No Reported Reaction Past Psychological History: No Psychological Hx Reported Smoking Status: Current every day smoker Past Alcohol Use History: None Reported Additional Past Alcohol Use History / Comment(s): Can't remember when she started smoking, 1ppd. Past Drug Use History: None Reported - Past Family History Father Family Medical History: Cancer, Hyperlipidemia Additional Family Medical History / Comment(s): Esophageal cancer, Mother Family Medical History: Diabetes Mellitus, Hypertension Medications and Allergies Home Medications Medication Instructions Recorded Confirmed Type Atorvastatin [Lipitor] 20 mg PO HS 05/29/25 05/29/25 History Tolterodine ER [Detrol LA] 4 mg PO DAILY 05/29/25 05/29/25 History amLODIPine [Norvasc] 10 mg PO DAILY 05/29/25 05/29/25 History hydrALAZINE HCL [Apresoline] 10 mg PO BID-W/MEALS 05/29/25 05/29/25 History hydroCHLOROthiazide [Hydrodiuril] 25 mg PO DAILY 05/29/25 05/29/25 History lisinopriL [Zestril] 20 mg PO BID 05/29/25 05/29/25 History Allergies Allergy/AdvReac Type Severity Reaction Status Date / Time erythromycin base Allergy Diarrhea Verified 05/29/25 19:38 Physical Exam Vitals: Vital Signs Temp Pulse Pulse Pulse Resp BP BP 05/30/25 07:53 98.6 F 75 16 167/60 05/30/25 02:00 97.6 F 69 05/29/25 23:28 97.9 F 69 05/29/25 22:54 83 18 155/59 05/29/25 18:08 90 18 157/85 05/29/25 16:39 89 18 05/29/25 14:50 98.9 F 107 H 18 92/63 BP Pulse Ox 05/30/25 07:53 99 05/30/25 02:00 150/94 99 05/29/25 23:28 137/68 96 05/29/25 22:54 95 05/29/25 18:08 100 05/29/25 16:39 99 05/29/25 14:50 97 Intake and Output 05/29/25 05/30/25 05/30/25 22:59 06:59 14:59 Other: # Voids 2 Weight 90.718 kg Results 05/30/25 02:06 05/30/25 02:06 Cardiac Enzymes 05/29/25 05/29/25 05/29/25 Range/Units 15:25 15:25 18:23 AST 30 (14-36) U/L Troponin I 0.046 H* 0.049 H* (0.000-0.034) ng/mL 05/29/25 05/30/25 05/30/25 Range/Units 21:01 02:06 02:06 AST 29 (14-36) U/L Troponin I 0.062 H* 0.055 H* (0.000-0.034) ng/mL Coagulation 05/29/25 Range/Units 16:28 PT 11.0 (10.0-12.5) sec APTT 21.2 L (22.0-30.0) sec CBC 05/29/25 05/30/25 Range/Units 15: 02:06 WBC 10.49 H 10.27 H (4.50-10.00) 10*3/uL RBC 4.17 3.94 L (4.10-5.20) 10*6/uL Hgb 13.5 12.7 (12.0-15.0) g/dL Hct 40.1 38.7 (37.2-46.3) % Plt Count 244 243 (140-440) 10*3/uL Comprehensive Metabolic Panel 05/29/25 05/30/25 Range/Units 15: 02:06 Sodium 144 142 (137-145) mmol/L Potassium 3.6 3.5 (3.5-5.1) mmol/L Chloride 113 H 109 H (98-107) mmol/L Carbon Dioxide 18 L 24 (22-30) mmol/L BUN 19 H 18 H (7-17) mg/dL Creatinine 1.53 H 0.94 (0.52-1.04) mg/dL Glucose 110 H 82 (74-99) mg/dL Calcium 10.0 9.2 (8.4-10.2) mg/dL AST 30 29 (14-36) U/L ALT 21 21 (4-34) U/L Alkaline Phosphatase 90 75 (38-126) U/L Total Protein 7.0 6.4 (6.3-8.2) g/dL Albumin 4.2 3.7 (3.5-5.0) g/dL Current Medications Generic Name Dose Route Start Last Admin Trade Name Freq PRN Reason Stop Dose Admin Amlodipine Besylate 10 mg 05/30/25 09:30 05/30/25 09:38 Amlodipine 10 Mg Tab PO 10 mg DAILY [facility] Administration Atorvastatin Calcium 20 mg 05/30/25 21:00 Atorvastatin 20 Mg Tab PO HS DUKE Heparin Sodium (Porcine) 5,000 unit 05/29/25 21:00 05/30/25 09:38 Heparin Sodium,Porcine 5,000 Unit/Ml 1 Ml Vial SQ 5,000 unit Q12HR [facility] Administration Hydralazine HCl 10 mg 05/30/25 09:30 Hydralazine Hcl 10 Mg Tab PO BID-W/MEALS [facility]KE Hydrochlorothiazide 25 mg 05/30/25 09:30 Hydrochlorothiazide 25 Mg Tab PO DAILY [facility] Sodium Chloride 1,000 mls @ 130 mls/hr 05/29/25 16:30 05/30/25 09:39 Saline 0.9% IV 130 mls/hr .[id number] [facility] Administration Lisinopril 20 mg 05/30/25 09:30 05/30/25 09:38 Lisinopril 20 Mg Tab PO 20 mg BID [facility] Administration Naloxone HCl 0.2 mg 05/29/25 16:29 Naloxone 0.4 Mg/Ml 1 Ml Vial IV Q2M PRN Opioid Reversal Intake and Output 05/29/25 05/30/25 05/30/25 22:59 06:59 14:59 Other: # Voids 2 Weight 90.718 kg 05/30/25 02:06 05/30/25 02:06
[2025-05-30] MEDS: hydroCHLOROthiazide 25 MG TAB PO SCH (11:12)
[2025-05-30] MEDS: ATORVASTATIN 20 MG TAB PO SCH (21:15)
--- NOTE | 2025-05-31 07:35 | CA ---
Transthoracic Echo Report Name: Ramona Haynes Age: 64 Gender: F : 1960 Exam Date: 05/30/2025 13:24 Exam Location: [facility] Ht (in): 61 Wt (lb): 200 Ordering Physician: Palma Perry Attending/Referring Phys: [id number], [place] Light Bulb Replacer Haley Martino, MICHAELLE Procedure CPT: Indications: syncope, htn Cardiac Hx: Technical Quality: Good Contrast 1: Total Dose (mL): Contrast 2: Total Dose (mL): MEASUREMENTS (Male / Female) Normal Values 2D ECHO LV Diastolic Diameter PLAX 4.7 cm 4.2 - 5.9 / 3.9 - 5.3 cm LV Systolic Diameter PLAX 3.4 cm IVS Diastolic Thickness 1.3 cm 0.6 - 1.0 / 0.6 - 0.9 cm LVPW Diastolic Thickness 1.2 cm 0.6 - 1.0 / 0.6 - 0.9 cm LV Relative Wall Thickness 0.5 RV Internal Dim ED PLAX 2.6 cm LVOT Diameter 1.5 cm LA Systolic Diameter LX 4.1 cm 3.0 - 4.0 / 2.7 - 3.8 cm LV Diastolic Volume MOD BP 121.0 cm??? 67 - 155 / 56 - 104 cm??? LV Systolic Volume MOD BP 57.3 cm??? - 58 / 19 - 49 cm??? LV Ejection Fraction MOD BP 52.7 % >= 55 % LV Cardiac Index MOD BP 2238.0 cm???/min???m??? LV Diastolic Volume MOD 4C 127.8 cm??? LV Systolic Volume MOD 4C 62.5 cm??? LV Ejection Fraction MOD 4C 51.1 % LV Cardiac Index MOD 4C 2291.3 cm???/min???m??? LV Diastolic Length 4C 8.8 cm LV Systolic Length 4C 7.5 cm LV Diastolic Volume MOD 2C 109.5 cm??? LV Systolic Volume MOD 2C 52.5 cm??? LV Ejection Fraction MOD 2C 52.1 % LV Cardiac Index MOD 2C 2000.1 cm???/min???m??? LV Diastolic Length 2C 8.4 cm LV Systolic Length 2C 7.6 cm LA Volume 93.7 cm??? 18 - 58 / 22 - 52 cm??? LA Volume Index 46.3 cm???/m??? 16 - 28 cm???/m??? DOPPLER AV Peak Velocity 200.8 cm/s AV Peak Gradient 16.1 mmHg AV Mean Velocity 136.2 cm/s AV Mean Gradient 8.4 mmHg AV Velocity Time Integral 38.4 cm MV Peak Velocity 120.9 cm/s MV Peak Gradient 5.8 mmHg MV Mean Velocity 76.9 cm/s MV Mean Gradient 2.7 mmHg MV Velocity Time Integral 51.2 cm MV Area PHT 2.7 cm??? Mitral E Point Velocity 86.9 cm/s Mitral A Point Velocity 110.8 cm/s Mitral E to A Ratio 0.8 MV Deceleration Time 284.3 ms TR Peak Velocity 222.6 cm/s TR Peak Gradient 19.8 mmHg FINDINGS Left Ventricle Left ventricular ejection fraction is estimated at 50-55 %. Mild concentric left ventricular hypertrophy. Left ventricular cavity size normal. Left ventricular systolic function borderline normal Right Ventricle Normal right ventricular size and function. Right ventricular systolic pressure within normal limits. Right Atrium Normal right atrial size. Left Atrium Mildly increased left atrial diameter. Severely increased left atrial volume. Mildly increased left atrial area. Mitral Valve Moderate mitral annular calcification. No mitral stenosis. Mild mitral regurgitation. Aortic Valve Trileaflet aortic valve. Thickened aortic valve without stenosis. No aortic regurgitation. Tricuspid Valve Structurally normal tricuspid valve. No tricuspid stenosis. Mild tricuspid regurgitation. Pulmonic Valve Structurally normal pulmonic valve. No pulmonic stenosis. Trace pulmonic regurgitation. Pericardium No pericardial effusion. Aorta Normal size aortic root and proximal ascending aorta. CONCLUSIONS 1. Left ventricular systolic function borderline normal 2. Mild mitral and tricuspid regurgitation Previewed by: Dr. Karlo Maher MD (Electronically Signed) Final Date: 31 May 2025 07:35
[2025-05-31] MEDS: OXYBUTYNIN 10 MG TAB.ER.24 PO SCH (08:08)
[2025-05-31 08:38] VITALS: RESP 17; TEMP 97.7
--- NOTE | 2025-05-31 11:24 | P.PN ---
Subjective HISTORY OF PRESENT ILLNESS: This is a 64-year-old female with a past medical history significant for hypertension, hyperlipidemia, and obesity. Patient follows in the office with Dr. Saha. We have been asked to see the patient in consultation for syncope. Patient examined at the bedside. Patient states that she was sitting outside watching her brother mow the lawn. She thought that she was initiated part of the yard due to the heat. She states she was feeling fine at that time however when she went to go back into the house she passed out. She states that she was out for a couple minutes. She denied having any chest pain or pressure. She denied having any shortness of breath. She denied have any dizziness or lightheadedness. She states that her family was around when this happened. She believes that she was out for couple minutes. She denies any jerking movements of her extremities or losing control of her bowel or bladder. She denies any previous episodes of syncope. She is a current cigarette smoker but states she is trying to stop. DIAGNOSTICS: - EKG reveals sinus mechanism with left bundle branch block. - Chest xray negative for acute findings - Laboratory data: Troponin 0.049. 0.062. 0.055. - Current home cardiac medications include lisinopril 20 mg twice a day, hydrochlorothiazide 25 mg daily, hydralazine 10 mg twice a day, amlodipine 10 mg daily, Lipitor 20 mg at night. - Most recent echocardiogram obtained in December 2024 reveals ejection fraction 40 to 45%, moderate concentric LVH, moderate MR, trace TR. - Patient underwent Lexiscan stress test in April 2023 which was negative for ischemia 05/31/2025 Patient examined this morning at bedside. Patient currently denies chest pain or pressure. She denies shortness of breath. Echocardiogram completed revealing ejection fraction 50 to 55%, mild concentric LVH. Mild MR, mild TR. Blood pressures remain elevated with a systolic in the 150s. PHYSICAL EXAM: VITAL SIGNS: Reviewed. GENERAL: Well-developed in no acute distress. HEENT: Head is normocephalic. Pupils are equal, round. Sclerae anicteric. Mucous membranes of the mouth are moist. Neck supple. No JVD or thyromegaly LUNGS: Respirations even and unlabored. Lungs essentially clear to auscultation bilaterally. HEART: Regular rate and rhythm. S1 and S2 heard. ABDOMEN: Soft. Nondistended. Nontender. EXTREMITIES: Normal range of motion. No clubbing or cyanosis. Peripheral puls es intact. No lower extremity edema NEUROLOGIC: Awake and alert. Oriented x 3. ASSESSMENT: Syncope, likely orthostatic hypotension Acute kidney injury, resolved with IV fluid hydration Elevated troponins, flat, likely secondary to acute kidney injury, no evidence of myocardial injury or ischemia History of hypertension History of hyperlipidemia Obesity: BMI 37.8 Nicotine dependence PLAN: Increase hydralazine to 25 mg twice a day Continue amlodipine, Lipitor, hydrochlorothiazide, and lisinopril Patient may be discharged home today from a cardiac standpoint Patient to follow-up postdischarge in the office with Dr. Saha We will sign off. Please reconsult if needed. Nurse practitioner note has been reviewed by physician. Signing provider agrees with the documented findings, assessment, and plan of care documented by CONCRETE TILE MACHINE OPERATOR as a scribe. Objective - Vital Signs Vital signs: Vital Signs Temp 97.7 F 05/31/25 08:00 Pulse 71 05/31/25 08:00 Resp 17 05/31/25 08:00 BP 155/81 05/31/25 08:00 Pulse Ox 99 05/31/25 08:00 FiO2 Intake & Output 05/30/25 05/31/25 05/31/25 18:59 06:59 18:59 Intake Total 740 Balance 740 Intake: Intake, IV Titration 740 Amount Sodium Chloride 0.9% 1, 740 000 ml @ 75 mls/hr IV . [id number] [facility] Rx#:[id number] Other: # Voids 2 - Labs CBC & Chem 7: 05/30/25 02:06 05/30/25 02:06
--- NOTE | 2025-05-31 12:49 | PN ---
PROGRESS NOTE DATE OF SERVICE: 05/30/2025 SUBJECTIVE: This is a 64-year-old woman who was admitted with syncope, has elevated troponin. Cardiology seen the patient, recommended 2D echo. The patient has been closely monitored. No chest pain. No palpitation. OBJECTIVE: VITAL SIGNS: Pulse is 75, blood pressure 171/79, respirations 18. CHEST: Clear to auscultation. CARDIOVASCULAR: S1, S2. ABDOMEN: Soft. NERVOUS SYSTEM: Nonfocal. LABORATORY DATA: Reviewed. ASSESSMENT: 1. Syncope, possibly from hypovolemia and dehydration. 2. Acute renal failure. 3. Elevated D-dimer. Pulmonary embolus ruled out. 4. Troponin 0.046, rule out acute myocardial infarction, coronary artery disease. 5. Asthma. 6. Hypertension. 7. Hyperlipidemia. 8. Multiple complex medical issues. RECOMMENDATIONS: Recommend to continue current management and symptomatic treatment at this time. 2D echo with Doppler. Closely follow with Cardiology. Guarded prognosis. Further recommendations to follow. MMODL / IJN: [id number] /
[2025-05-31 15:27] VITALS: BP 158/74; PULSE 74
== END 2025-05-31 16:20 | disposition home or self-care (01) ==
LOC: EC 14:48 → 1SOBS 16:30
PROVIDERS: ADMIT Hospitalist; ATTEND Hospitalist
DX: R55 Syncope and collapse (principal); N17.9 Acute kidney failure, unspecified; R79.89 Other specified abnormal findings of blood chemistry; I10 Essential (primary) hypertension; E78.5 Hyperlipidemia, unspecified; R73.03 Prediabetes; F17.210 Nicotine dependence, cigarettes, uncomplicated; E66.9 Obesity, unspecified; Z68.37 Body mass index [BMI] 37.0-37.9, adult; Z11.52 Encounter for screening for COVID-19; Z79.899 Other long term (current) drug therapy; Z88.1 Allergy status to other antibiotic agents
CPT/HCPCS: 96361 ×3; 96372 ×3; 96360; 99285; 36415; 93005; 93306; 85379; 80053 ×2; 83735; 84484 ×2; 85025 ×2; 85610; 85730; 87636; 71046; 70450; 71275; G0378 ×3; J1644 ×3; Q9967